=== PATIENT | male | born 1965 | race Caucasian/White ===

== ENCOUNTER 2017-08-05 14:55 | Emergency (ER) | payer BC ==
[2017-08-05 15:11] VITALS: BP 146/79; PULSE 79; O2SAT 98
--- NOTE | 2017-08-05 15:23 | ED PDOC ---
Arrival/HPI - General Historian: Patient - History of Present Illness Time/Duration: < week Symptom Onset: Gradual Symptom Course: Unchanged <Richard Burger - Last Filed: 08/05/17 15:55> - History of Present Illness Activities at Onset: Rest Context: Home <SeMichael - Last Filed: 08/05/17 17:14> - General Chief Complaint: Abnormal Skin Integrity Time Seen by Provider: 08/05/17 15:16 - History of Present Illness Narrative History of Present Illness (Text): 52 year old male presents with rash on right and left forearm which appeared Wednesday. 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 Next day he noticed a small rash and felt itchiness. He denies any allergies, denies SOB, chest pain, or any other complaints at this time. 08/05/17 15:46 (Richard Burger) Past Medical History - Provider Review Nursing Documentation Reviewed: Yes <Richard Burger - Last Filed: 08/05/17 15:55> - Travel History Have you recently traveled outside [place] w/in the past 3 mons?: No - Past History Past History: No Previous - Tetanus Immunization Tetanus Immunization: Unknown <SeMichael - Last Filed: 08/05/17 17:14> Family/Social History - Physician Review Nursing Documentation Reviewed: Yes Family/Social History: No Known Family HX <Richard Burger - Last Filed: 08/05/17 15:55> Smoking Status: Unknown If Ever Smoked Hx Alcohol Use: No Hx Substance Use: No Hx Substance Use Treatment: No <Michael Saez - Last Filed: 08/05/17 17:14> Allergies/Home Meds <Richard Burger - Last Filed: 08/05/17 15:55> <Michael Saez - Last Filed: 08/05/17 17:14> Allergies/Adverse Reactions: Allergies No Known Allergies Allergy (Verified 08/05/17 15:44) Review of Systems - Review of Systems Constitutional: Normal Eyes: Normal ENT: Normal Respiratory: Normal Cardiovascular: Normal Gastrointestinal: Normal Genitourinary Male: Normal Musculoskeletal: Normal Skin: Rash, Pruritis Neurological: Normal Endocrine: Normal Hemo/Lymphatic: Normal Psychiatric: Normal <Richard Burger - Last Filed: 08/05/17 15:55> Physical Exam Vital Signs Reviewed: Yes Temperature: Afebrile Blood Pressure: Normal Pulse: Regular Respiratory Rate: Normal Appearance: Positive for: Well-Appearing, Non-Toxic, Comfortable Pain Distress: None Mental Status: Positive for: Alert and Oriented X 3 - Systems Exam Head: Present: Atraumatic, Normocephalic Pupils: Present: PERRL Extroacular Muscles: Present: EOMI Conjunctiva: Present: Normal Mouth: Present: Moist Mucous Membranes Neck: Present: Normal Range of Motion Respiratory/Chest: Present: Clear to Auscultation, Good Air Exchange. No: Respiratory Distress, Accessory Muscle Use, Wheezes Cardiovascular: Present: Regular Rate and Rhythm, Normal S1, S2 Abdomen: Present: Normal Bowel Sounds. No: Tenderness, Distention Upper Extremity: Present: Normal Inspection. No: Edema Lower Extremity: Present: Normal Inspection. No: Edema Neurological: Present: GCS=15, CN II-XII Intact Skin: Present: Warm, Rashes Psychiatric: Present: Alert, Oriented x 3 <Richard Burger - Last Filed: 08/05/17 15:55> Blood Pressure: Hypertensive <Michael Saez - Last Filed: 08/05/17 17:14> Vital Signs Temp Pulse Resp BP Pulse Ox 08/05/17 16:10 98.1 F 79 16 146/79 98 08/05/17 15:38 98.1 F 08/05/17 15:10 98.5 F 79 18 146/79 98 Medical Decision Making <Richard Burger - Last Filed: 08/05/17 15:55> Re-evaluation Time: 15:30 Reassessment Condition: Unchanged <Michael Saez - Last Filed: 08/05/17 17:14> ED Course and Treatment: Plan - 08/05/17 15:49 (Richard Burger) 08/05/17 15:50 Patient Seen With Resident: In agreement with resident note which contains more details about the patient. Patient was seen and evaluated with resident. Came up with plan and treatment together.. I performed the hx and physical exam of the patient and discussed their mgt with the RESIDENT. I reviewed the RESIDENT's NOTE and agree with the assessment and plan of care. b/l forearm skin rash/induration, with slightly raised erythematous skin, NON- tender, + mildly puritic; non-purluent, NO nikosky's sign pt is made aware of his medical results pt is encouraged wearing long sleeve shirt pt is encouraged avoidance of sunlight pt will f/u as directed pt will be discharged home (Michael Saez) Disposition/Present on Arrival - Present on Arrival Any Indicators Present on Arrival: No - Disposition Have Diagnosis and Disposition been Completed?: Yes Disposition Time: 15:56 <Richard Burger - Last Filed: 08/05/17 15:55> - Present on Arrival History of DVT/PE: No History of Uncontrolled Diabetes: No Urinary Catheter: No History of Decub. Ulcer: No History Surgical Site Infection Following: None - Disposition Patient Plan: Discharge <Michael Saez - Last Filed: 08/05/17 17:14> - Disposition Diagnosis: Skin rash, Contact dermatitis Disposition: HOME/ ROUTINE Condition: GOOD Discharge Instructions (ExitCare): Contact Dermatitis (DC), Skin Rash (DC) Print Language: S[place] Additional Instructions: please apply cream to infected area 3 times a day. Please return if rash worsens or there is difficulty breathing. Follow up with PMD Prescriptions: Hydrocortisone 1% Cream [Cortizone 1% Cream] 1 appl TP TID #1 tube Forms: [employer] (Portuguese)
[2017-08-05 15:40] VITALS: TEMP 98.1
[2017-08-05 16:54] VITALS: RESP 16
== END 2017-08-05 16:10 | disposition home or self-care (01) ==
LOC: ED 14:55
DX: L25.9 Unspecified contact dermatitis, unspecified cause (principal)